=== PATIENT | female | born 1970 | race Caucasian/White ===

== ENCOUNTER 2021-02-17 11:01 | Outpatient (RCR) | payer OTHER, SELFPAY ==
--- NOTE | 2021-02-17 12:02 | PTOPEVAL ---
Thank you for referring Paul Meeks to [facility].? The patient is scheduled to be seen for therapy? ____x/week for ___ weeks. Please review, sign, date and return this plan of care EARL. I agree with and certify that the following plan of care is medically necessary. Referring Physician Date Admitting Provider: Attending Provider: ERNST MONIQUE Referring Provider: RodPT Outpatient Evaluation Start: 02/17/21 10:52 Freq: Status: Active Protocol: Document 02/17/21 10:52 ACR (Rec: 02/17/21 12:02 ACR [id number]) Therapy Assessment Status Assessment Status Assessment Status Evaluation Evaluation Information Problem Diagnosis R tibial fracture Onset 12/16/20 Subjective Information Patient states that she fell Query Text:As Reported By Patient/ off of a deck in the middle of Family the night letting her dog out . She states she went to the ER and got surgery the next day. Patient states she was NWB for 2 weeks, then was TTWB for the remainder of the 8 weeks, and is not WBAT. Patient states that walking, standing, stairs and carrying things are the most difficult. Patient states she is walking in her pool a bit and that is not bothering. 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 Ability Independent Indoor/Home Mobility Independent Community Mobility Independent Stairs Ability Independent Functional Cognition (Planning, Shopping Independent , Taking Medications) Cooking Yes Cleaning Yes Laundry Yes Shopping Yes Driving Yes Pain Assessment Timing of Pain Assessment Timing of Pain Assessment Assessment Pain Scale Pain Scale Used Numeric (1 - 10) Self Report Pain Assessment Right Leg(s) Reported Pain Level 4 Pain Description Pinching,Sharp,Shooting Greatest Pain Intensity 10 Pain Score Pain Score 4: Self Report Interventions Used Interventions Used By Clinicians Activity or ADL's,Education, Exercise Lower Extremity Range of Motion Knee Range of Motion Right Knee Flexion Range of Motion - Active 112 Knee Extension Range of Motion - Active 0
--- NOTE | 2021-02-17 12:29 | PTOPEVAL ---
Thank you for referring Paul Meeks to [facility].? The patient is scheduled to be seen for therapy? ____x/week for ___ weeks. Please review, sign, date and return this plan of care EARL. I agree with and certify that the following plan of care is medically necessary. Referring Physician Date Admitting Provider: Attending Provider: ERNST OMNIQUE Referring Provider: RodPT Outpatient Evaluation Start: 02/17/21 10:52 Freq: Status: Active Protocol: Document 02/17/21 10:52 ACR (Rec: 02/17/21 12:02 ACR [email or web address]) Therapy Assessment Status Assessment Status Assessment Status Evaluation Evaluation Information Problem Diagnosis R tibial fracture Onset 12/16/20 Additional Evaluation Detail LEFS: 38% functionally declined Subjective Information Patient states that she fell Query Text:As Reported By Patient/ off of a deck in the middle of Family the night letting her dog out . She states she went to the ER and got surgery the next day. Patient states she was NWB for 2 weeks, then was TTWB for the remainder of the 8 weeks, and is not WBAT. Patient states that walking, standing, stairs and carrying things are the most difficult. Patient states she is walking in her pool a bit and that is not bothering. 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 Ability Independent Indoor/Home Mobility Independent Community Mobility Independent Stairs Ability Independent Functional Cognition (Planning, Shopping Independent , Taking Medications) Cooking Yes Cleaning Yes Laundry Yes Shopping Yes Driving Yes Pain Assessment Timing of Pain Assessment Timing of Pain Assessment Assessment Pain Scale Pain Scale Used Numeric (1 - 10) Self Report Pain Assessment Right Leg(s) Reported Pain Level 4 Pain Description Pinching,Sharp,Shooting Greatest Pain Intensity 10 Pain Score Pain Score 4: Self Report Interventions Used Interventions Used By Clinicians Activity or ADL's,Education, Exercise Lower Extremity Range of Motion Knee Range o
--- NOTE | 2021-02-22 12:52 | PCPTNOTE ---
On 02/22/21, the student, [facility]Carito Tim[facility] provided care and completed [employer] documentation on this patient. I have reviewed the student's documentation and agree with the findings.
--- NOTE | 2021-02-24 13:14 | PCPTNOTE ---
On 02/24/21, the student, [facility] provided care and completed [employer] documentation on this patient. I have reviewed the student's documentation and agree with the findings.
--- NOTE | 2021-02-26 11:23 | PCPTNOTE ---
On 02/26/21, the student, [facility] provided care and completed [employer] documentation on this patient. I have reviewed the student's documentation and agree with the findings.
--- NOTE | 2021-03-22 12:26 | PTOPEVAL ---
Thank you for referring Paul Meeks to [facility].? The patient is scheduled to be seen for therapy? ____x/week for ___ weeks. Please review, sign, date and return this plan of care EARL. I agree with and certify that the following plan of care is medically necessary. Referring Physician Date Admitting Provider: Attending Provider: ERNST MONIQUE Referring Provider: RodPT Outpatient Evaluation Start: 02/17/21 10:52 Freq: Status: Active Protocol: Document 03/22/21 10:02 ACR (Rec: 03/22/21 11:03 ACR [email or web address]) Therapy Assessment Status Assessment Status Assessment Status Discharge Evaluation Information Problem Diagnosis R tibial fracture Onset 12/16/20 Subjective Information Patient states she was just on Query Text:As Reported By Patient/ vacation so she was doing a Family lot of walking. She states she is pretty sore. Patient states since beginning therapy everything has become easier such as walking, standing, carrying objects, and stairs. She states she has some difficulty with prolonged walking or standing. She states that at this time she does not think she could go back to work at this time because of her balance and being on her feet for a prolonged period of time. Pain Assessment Timing of Pain Assessment Timing of Pain Assessment Pre-Treatment Pain Scale Pain Scale Used Numeric (1 - 10) Self Report Pain Assessment Right Leg(s) Reported Pain Level 3 Greatest Pain Intensity 6 Pain Score Pain Score 3: Self Report Interventions Used Interventions Used By Clinicians Activity or ADL's,Exercise Lower Extremity Range of Motion Ankle/Foot Range of Motion Right Ankle Dorsiflexion With Knee Extension 3 Range of Motion - Active Ankle Plantarflexion Range of Motion - 65 Active Query Text: Lower Extremity Muscle Strength Testing Knee Strength Right Knee Flexion Strength 5 Normal Knee Extension Strength 5 Normal Left Knee Flexion Strength 5 Normal Knee Extension Strength 5 Normal Ankle Strength Right Ankle Dorsiflexion Strength 5 Normal Ankle Plantarflexion Strength 5 Normal Ankle Eversion Strength 5 Normal Ankle Inversion Strength 5 Normal Gait Assessment Gait Assessment Additional Ambu
--- NOTE | 2021-05-13 15:25 | PTOPEVAL ---
Thank you for referring Paul Meeks to [facility].? The patient is scheduled to be seen for therapy? ____x/week for ___ weeks. Please review, sign, date and return this plan of care EARL. I agree with and certify that the following plan of care is medically necessary. Referring Physician Date Admitting Provider: Attending Provider: ERNST MONIQUE Referring Provider: MONTSERRAT Outpatient Evaluation Start: 02/17/21 10:52 Freq: Status: Active Protocol: Document 05/13/21 14:40 ACR (Rec: 05/13/21 15:24 ACR [email or web address]) Therapy Assessment Status Assessment Status Assessment Status Discharge Evaluation Information Problem Diagnosis R tibial fracture Onset 12/16/20 Subjective Information Patient reports that she is Query Text:As Reported By Patient/ able to do everything that she Family is able to everything that she needs to do such as walking, standing, and stairs with minimal difficulty. Work is still difficult because of the amount of people in the area and she feels her balance is still a little off, but she is able to perform her daily activties without significant difficulty. Pain Assessment Timing of Pain Assessment Timing of Pain Assessment Assessment Pain Scale Pain Scale Used Numeric (1 - 10) Self Report Pain Assessment Right Leg(s) Reported Pain Level 5 Lowest Pain Intensity 0 Greatest Pain Intensity 5 Pain Score Pain Score 5: Self Report Interventions Used Interventions Used By Clinicians Activity or ADL's,Exercise Lower Extremity Range of Motion Ankle/Foot Range of Motion Right Ankle Dorsiflexion With Knee Extension 5 Range of Motion - Active Ankle Plantarflexion Range of Motion - 63 Active Query Text: General Exercise General Exercises Exercise Description -nustep level 5, 10 minutes Query Text:Record Sets, Reps, -slantboard stretch 3x 1 Resistance, and Position minute -passive stretching into DF x 5 minutes -blue theraband DF/PF/inv/ev x 20 each -heel/toe raises x 30 -step ups onto sanddune x 20 ea kristopher -sanddune balance x 1 min -lunges x 20 bilateral
== END 2021-05-13 08:40 | disposition home or self-care (01) ==
LOC: CHSPT 11:01
DX: S82.151D Displaced fracture of right tibial tuberosity, subsequent encounter for closed fracture with routine healing (principal)
CPT/HCPCS: 97110; 97161; 97530